=== PATIENT | male | born 1945 | race Caucasian/White ===

== ENCOUNTER 2016-09-24 13:26 | Emergency (ER) | payer MEDICARE, BC ==
[2016-09-24 13:50] VITALS: BP 188/97
[2016-09-24] MEDS ORDERED: Ketorolac 60 MG/2 ML SDV IM ONE (14:48)
--- NOTE | 2016-09-24 14:55 | EDM.PDOC ---
ED HPI Trauma - General Chief Complaint: Upper Extremity Injury/Pain Stated Complaint: LEFT SHOULDER PAIN Time Seen by Provider: 09/24/16 14:52 Source: Reports: Patient, RN notes reviewed History Limitations: Reports: No limitations - History of Present Illness INITIAL COMMENTS - FREE TEXT/NARRATIVE: 70-year-old gentleman presents emergency Department with a complaint of left shoulder pain, this happened earlier today when he slipped in the shower fell against the wall and slid to the ground. He heard a large pop in his left shoulder and is now experiencing pain difficult for him to raise his hand above his head Allergies/ADRs: Allergies liraglutide Allergy (Severe, Verified 09/24/16 13:50) Abdominal Pain Home Medications: Ambulatory Orders Levothyroxine Sodium [Levothyroxine Sodium] 100 mcg PO DAILY 08/08/13 [ Confirmed 09/24/16] Lisinopril [Prinivil] 10 mg PO BID 08/08/13 [Confirmed 09/24/16] Metoprolol Tartrate [Lopressor] 50 mg PO BID 08/08/13 [Confirmed 09/24/16] Tamsulosin HCl [Tamsulosin HCl] 0.4 mg PO DAILY 08/08/13 [Confirmed 09/24/16] atorvaSTATin [Lipitor] 80 mg PO BEDTIME 08/08/13 [Confirmed 09/24/16] metFORMIN [Glucophage] 1,000 mg PO BID 08/08/13 [Confirmed 09/24/16] Aspirin [Adult Low Dose Aspirin EC] 81 mg PO DAILY 08/19/13 [Confirmed 09/24/16] Finasteride [Proscar] 5 mg PO DAILY 08/15/14 [Confirmed 09/24/16] Insulin Glargine,Hum.Rec.Anlog [Malu March] 44 unit SQ ACBREAKFAST [Confirmed 09/24/16] Nitroglycerin [Nitrostat] 0.3 mg PO ASDIRECTED 09/24/16 [Confirmed 09/24/16] Past Medical History HEENT History: Reports: Cataract, Impaired vision Cardiovascular History: Reports: CAD, High cholesterol, Hypertension, Stents, Other (see below) Other Cardiovascular History: leaky valve Genitourinary History: Reports: BPH, Chronic renal insuffiency, Other (see below ) Other Genitourinary History: Nocturia Neurological History: Reports: Parkinson's Endocrine/Metabolic History: Reports: Diabetes, type II, Hypoparathyroidism - Infectious Disease History Infectious Disease History: Reports: Chicken pox - Past Surgical History HEENT Surgical History: Reports: Tonsillectomy Cardiovascular Surgical History: Reports: Carotid stents Social & Family History - Family History Family Medical History: Unobtainable - Tobacco Use Smoking Status *Q: Never Smoker Second Hand Smoke Exposure: No - Caffeine Use Caffeine Use: Reports: None - Alcohol Use Days Per Week of Alcohol Use: 0 - Recreational Drug Use Recreational Drug Use: No Review of Systems - Review of Systems Review Of Systems: See Below Constitutional: Reports: no symptoms Respiratory: Reports: no symptoms Cardiovascular: Reports: no symptoms Musculoskeletal: Reports: shoulder pain Trauma Exam - Physical Exam Exam: See Below Text/Narrative:: Examination of the left shoulder I don't appreciate any abnormality there's no edema there is no redness or bruising, radial pulses 2+ no tenderness at the elbow no tenderness the rest he does have pain with crossarm impingement test passively also pain with any abduction. He has some movement in the shoulder however it does elicit pain from any position Exam Limited By: No limitations General Appearance: Reports: alert, WD/WN, no apparent distress Respiratory Exam: Reports: no respiratory distress Course - Vital Signs Last Recorded V/S: Last Vital Signs Temp 96.1 F 09/24/16 13:48 Pulse 64 09/24/16 13:48 Resp 20 09/24/16 13:48 BP 188/97 H 09/24/16 13:48 Pulse Ox 99 09/24/16 13:48 - Orders/Labs/Meds Orders: Active Orders 24 hr Category Date Time Status Shoulder Comp Lt [CR] Stat Exams 09/24/16 14:48 Taken Meds: Medications Discontinued Medications Generic Name Dose Route Start Last Admin Trade Name Freq PRN Reason Stop Dose Admin Ketorolac Tromethamine 60 mg 09/24/16 14:48 09/24/16 14:55 Toradol IM 09/24/16 14:49 60 mg ONETIME ONE Administration Departure - Departure Time of Disposition: 15:33 Disposition: Home, Self-Care 01 Condition: good Clinical Impression: Left shoulder pain Qualifiers: Chronicity: acute Qualified Code(s): M25.512 - Pain in left shoulder Forms: ED Department Discharge Additional Instructions: Use Tylenol No. 3 as needed for pain control, Please followup with your primary care provider in 3-5 days if not better, please call return to the emergency department with worsening of symptoms. - My Orders Last 24 Hours: My Active Orders 09/24/16 14:48 Shoulder Comp Lt [CR] Stat - Assessment/Plan Last 24 Hours: My Active Orders 09/24/16 14:48 Shoulder Comp Lt [CR] Stat Plan: Assessment Acuity = acute Site and laterality = left shoulder strain Etiology = secondary to a fall Manifestations = pain Home Lab values = shoulder film I did review films myself I cannot appreciate any acute process, the official read from radiology is pending Plan I did review film results with him he had good relief from the Toradol injection provided he is to use Tylenol No. 3 as needed for pain control follow up with primary care 3-5 days if no improvement Patient was in agreement with the plan all questions were answered, they were instructed to return to the emergency department or call for worsening symptoms. This note was dictated using [employer] voice recognition software please call with any questions.
--- NOTE | 2016-09-26 11:11 | CR ---
Moderate AC joint hypertrophy. Degenerative changes greater tuberosity. No focal consolidation.
== END 2016-09-24 15:43 | disposition home or self-care (01) ==
LOC: JP.ED 13:26
DX: M25.512 Pain in left shoulder (principal); I25.10 Atherosclerotic heart disease of native coronary artery without angina pectoris; E78.00 Pure hypercholesterolemia, unspecified; I10 Essential (primary) hypertension; E11.9 Type 2 diabetes mellitus without complications; Z98.890 Other specified postprocedural states; W18.09XA Striking against other object with subsequent fall, initial encounter
CPT/HCPCS: 73030; 96372; 99283; 99284; J1885

== ENCOUNTER 2016-10-10 14:00 | Emergency (ER) | payer MEDICARE, BC ==
--- NOTE | 2016-10-10 14:32 | EDM.PDOC ---
ED HISTORY OF PRESENT ILLNESS - General Chief Complaint: Chest Pain Stated Complaint: CHEST PAIN Time Seen by Provider: 10/10/16 14:29 Source: Reports: Patient History Limitations: Reports: No limitations - History of Present Illness INITIAL COMMENTS - FREE TEXT/NARRATIVE: 70-year-old gentleman presents emergency Department with a complaint of chest pain, pain started about 4 hours prior came on at rest he does have a history of coronary artery disease last stent in 2004, denies any shortness of breath nausea vomiting diaphoresis he did take 4 baby aspirin and the pain has resolved he is asymptomatic at this time DIXIE score is 3 - Related Data Allergies/ADRs: Allergies Allergy/AdvReac Type Severity Reaction Status Date / Time liraglutide Allergy Severe Abdominal Verified 10/10/16 14:07 Pain Home Meds: Home Meds Levothyroxine Sodium [Levothyroxine Sodium] 100 mcg PO DAILY 08/08/13 [History] Lisinopril [Prinivil] 10 mg PO BID 08/08/13 [History] Metoprolol Tartrate [Lopressor] 50 mg PO BID 08/08/13 [History] Tamsulosin HCl [Tamsulosin HCl] 0.4 mg PO DAILY 08/08/13 [History] atorvaSTATin [Lipitor] 80 mg PO BEDTIME 08/08/13 [History] metFORMIN [Glucophage] 1,000 mg PO BID 08/08/13 [History] Aspirin [Adult Low Dose Aspirin EC] 81 mg PO DAILY 08/19/13 [History] Finasteride [Proscar] 5 mg PO DAILY 08/15/14 [History] Insulin Glargine,Hum.Rec.Anlog [Malu March] 44 unit SQ ACBREAKFAST [History] Nitroglycerin [Nitrostat] 0.3 mg PO ASDIRECTED 09/24/16 [History] Ascorbic Acid [Vitamin C] 1 tab PO DAILY 10/10/16 [History] Cholecalciferol (Vitamin D3) [Vitamin D3] 2,000 unit PO DAILY 10/10/16 [History] Past Medical History HEENT History: Reports: Cataract, Impaired vision Cardiovascular History: Reports: CAD, High cholesterol, Hypertension, Stents, Other (see below) Other Cardiovascular History: leaky valve Genitourinary History: Reports: BPH, Chronic renal insuffiency, Other (see below ) Other Genitourinary History: Nocturia Neurological History: Reports: Parkinson's Endocrine/Metabolic History: Reports: Diabetes, type II, Hypoparathyroidism - Infectious Disease History Infectious Disease History: Reports: Chicken pox - Past Surgical History HEENT Surgical History: Reports: Tonsillectomy Cardiovascular Surgical History: Reports: Carotid stents Social & Family History - Family History Family Medical History: Unobtainable - Tobacco Use Smoking Status *Q: Never Smoker Second Hand Smoke Exposure: No - Caffeine Use Caffeine Use: Reports: Soda - Alcohol Use Days Per Week of Alcohol Use: 0 - Recreational Drug Use Recreational Drug Use: No ED ROS GENERAL - Review of Systems Review Of Systems: See Below Constitutional: Reports: no symptoms HEENT: Reports: No symptoms Respiratory: Reports: No Symptoms Cardiovascular: Reports: Chest pain GI/Abdominal: Reports: No symptoms : Reports: no symptoms Musculoskeletal: Reports: no symptoms Skin: Reports: no symptoms Neurological: Reports: No Symptoms ED EXAM, GENERAL - Physical Exam Exam: See Below Free Text/Narrative:: General: male, not in any distress, alert and oriented x3 HEENT: head is atraumatic normocephalic, eyes pupils equal round reactive to light, sclera clear no conjunctivitis appreciated. Ears tympanic membranes clear and peralta landmarks and light reflex are present bilaterally canals are clear. Nose no septal deviation, nares are clear, no blood present. Mouth mucosa is moist and pink no erythema or exudate noted in soft palate, tongue is midline uvula is midline, dentition is intact. Neck: Supple no thyromegaly no tracheal deviation. Nodes: Cervical nodes subclavicular nodes nontender no palpable lymphadenopathy noted. Lungs: clear to auscultation bilaterally with symmetrical respirations, no adventitious noise appreciated. CV: Regular rate and rhythm S1 and S2 appreciated no murmurs rubs or gallops noted. Abdomen: Soft, nontender, no palpable masses or organomegaly appreciated, no distention no guarding bowel sounds are present, . Neuro: Cranial nerves II through XII grossly intact Skin: Warm and dry, intact Extremities: No lower extremity edema appreciated, Course - Vital Signs Last Recorded V/S: Last Vital Signs Temp 96.1 F 10/10/16 14:18 Pulse 67 10/10/16 17:14 Resp 15 10/10/16 14:18 BP 183/95 H 10/10/16 17:14 Pulse Ox 94 L 10/10/16 17:14 - Orders/Labs/Meds Orders: Active Orders 24 hr Category Date Time Status Cardiac Monitoring [RC] .As Directed Care 10/10/16 14:28 Active EKG Documentation Completion [RC] ASDIRECTED Care 10/10/16 14:29 Active EKG 12 Lead [EK] Stat Ther 10/10/16 14:29 Ordered Labs: Laboratory Tests 10/10/16 10/10/16 10/10/16 Range/Units 14:43 14:43 17:00 WBC 12.6 H (4.5-11.0) K/uL RBC 5.23 (4.30-5.90) M/uL Hgb 15.7 H (12.0-15.0) g/dL Hct 45.6 (40.0-54.0) % MCV 87 (80-98) fL MCH 30 (27-31) pg MCHC 34 (32-36) % Plt Count 233 (150-400) K/uL Neut % (Auto) 55 (36-66) % Lymph % (Auto) 37 (24-44) % [place] % (Auto) 6 (2-6) % Eos % (Auto) 2 (2-4) % Baso % (Auto) 1 (0-1) % Sodium 142 (140-148) mmol/L Potassium 4.4 (3.6-5.2) mmol/L Chloride 103 (100-108) mmol/L Carbon Dioxide 25 (21-32) mmol/L Anion Gap 14.2 H (5.0-14.0) mmol/L BUN 26 H (7-18) mg/dL Creatinine 1.2 (0.8-1.3) mg/dL Est Cr Clr Drug Dosing 59.99 mL/min Estimated GFR (MDRD) > 60 (>60) Glucose 217 H (74-106) mg/dL Calcium 9.0 (8.5-10.1) mg/dL Total Bilirubin 0.5 (0.2-1.0) mg/dL AST 22 (15-37) U/L ALT 38 (12-78) U/L Alkaline Phosphatase 82 (46-116) U/L CK-MB (CK-2) 1.9 (0-3.6) mg/mL Troponin I 0.020 < 0.017 (0.000-0.056) ng/mL Total Protein 7.1 (6.4-8.2) g/dL Albumin 3.9 (3.4-5.0) g/dL Globulin 3.2 (2.3-3.5) g/dL Albumin/Globulin Ratio 1.2 (1.2-2.2) Departure - Departure Time of Disposition: 17:42 Disposition: Home, Self-Care 01 Condition: good Clinical Impression: Atypical chest pain Forms: ED Department Discharge Additional Instructions: please report to the hospital and register for your stress test on Monday of this week - My Orders Last 24 Hours: My Active Orders 10/10/16 14:28 Cardiac Monitoring [RC] .As Directed 10/10/16 14:29 EKG Documentation Completion [RC] ASDIRECTED EKG 12 Lead [EK] Stat - Assessment/Plan Last 24 Hours: My Active Orders 10/10/16 14:28 Cardiac Monitoring [RC] .As Directed 10/10/16 14:29 EKG Documentation Completion [RC] ASDIRECTED EKG 12 Lead [EK] Stat Plan: Assessment Acuity = acute Site and laterality = chest pain complicated patient with known history of coronary artery disease and diabetes mellitus type 2 Etiology = unclear etiology Manifestations = asymptomatic Location of injury = home Lab values = WBC elevated 12.6 consistent leukocytosis, CMP within normal limits troponin negative x2 EKG shows no acute process, chest x-ray shows no acute process Plan I did review EKG and blood work results with him he remained asymptomatic while in the ED because of his known history of coronary artery disease and has been several years since he's had any stress test unclear etiology of this particular event of chest pain plan is to set him up for an exercise Cardiolite stress test which will be done in 2 days Patient was in agreement with the plan all questions were answered, they were instructed to return to the emergency department or call for worsening symptoms. This note was dictated using [employer] voice recognition software please call with any questions.
--- NOTE | 2016-10-10 14:46 | CR ---
Chest 1V Frontal HISTORY: Pain COMPARISON: 04/10/2012. FINDINGS: Slight elevation right hemidiaphragm. Cardiac size stable pulmonary vessels normal. No foc al infiltrates.
[2016-10-10 17:15] VITALS: BP 183/95
== END 2016-10-10 18:09 | disposition home or self-care (01) ==
LOC: JP.ED 14:00
DX: R07.89 Other chest pain (principal); I10 Essential (primary) hypertension; I25.10 Atherosclerotic heart disease of native coronary artery without angina pectoris; E78.00 Pure hypercholesterolemia, unspecified; E11.9 Type 2 diabetes mellitus without complications; E20.9 Hypoparathyroidism, unspecified; Z98.890 Other specified postprocedural states; Z88.8 Allergy status to other drugs, medicaments and biological substances; Z79.82 Long term (current) use of aspirin; Z79.899 Other long term (current) drug therapy
CPT/HCPCS: 36415; 71010; 71010-26; 80053; 82553; 84484; 85025; 93005; 93010; 99284; 99285-25

== ENCOUNTER 2017-06-14 09:00 | Day surgery (SDC) | payer MEDICARE, BC ==
[2017-06-14] MEDS ORDERED: fentaNYL 100 MCG/2 ML SDV ONE (09:30)
[2017-06-14] MEDS ORDERED: Propofol 200 MG/20 ML SDV ONE (09:30)
[2017-06-14] MEDS ORDERED: Midazolam 1 MG/ML 2 ML SDV ONE (09:30)
[2017-06-14] MEDS ORDERED: Lactated Ringers 1,000 ML IV SCH (09:30)
[2017-06-14 12:03] VITALS: BP 151/75
--- NOTE | 2017-06-15 10:26 | OR ---
DATE OF PROCEDURE: 06/14/2017 PREOPERATIVE DIAGNOSIS: History of colon polyps. POSTOPERATIVE DIAGNOSIS: Diverticulosis, history of colon polyps. PROCEDURE: Colonoscopy to the cecum. SURGEON: Jacobo Whitmore MD. ANESTHESIA: IV anesthesia with monitored anesthesia care. INDICATION: This 71-year-old white male is referred for a colonoscopy because of a history of colon polyps. He says his last colonoscopic exam was done four years ago. I counseled him for the procedure, including risks and alternatives, and he gave his informed consent to proceed. DESCRIPTION OF PROCEDURE: The patient was placed in the left lateral decubitus position. IV anesthesia was administered by the Anesthesia Service. Time-out was held. A rectal exam was performed, which showed a small nodule on the prostate. The flexible video Olympus colonoscope was introduced through his anus, up his rectum, and out his colon, all the way to the cecum. En route, we saw very few diverticula. There was no bleeding or inflammation associated with them. Once the cecum was reached, the scope was slowly withdrawn, examining the mucosa throughout. No additional mucosal abnormalities were noted. The scope was retroflexed in the rectum with the distal rectum appearing unremarkable. The scope was straightened and removed. He tolerated the procedure well. Jacobo Whitmore MD /[id number] MTDD
== END 2017-06-14 12:06 | disposition home or self-care (01) ==
LOC: JP.SDS 09:00
PROVIDERS: ATTEND Surgery
DX: Z12.11 Encounter for screening for malignant neoplasm of colon (principal); K57.30 Diverticulosis of large intestine without perforation or abscess without bleeding; I25.10 Atherosclerotic heart disease of native coronary artery without angina pectoris; I12.9 Hypertensive chronic kidney disease with stage 1 through stage 4 chronic kidney disease, or unspecified chronic kidney disease; E11.22 Type 2 diabetes mellitus with diabetic chronic kidney disease; N18.9 Chronic kidney disease, unspecified; E11.40 Type 2 diabetes mellitus with diabetic neuropathy, unspecified; N40.2 Nodular prostate without lower urinary tract symptoms; Z86.010 Personal history of colon polyps; Z88.8 Allergy status to other drugs, medicaments and biological substances
CPT/HCPCS: G0105; J2250; J2704; J3010; J7120

== ENCOUNTER 2017-10-15 21:04 | Emergency (ER) | payer MEDICARE, BC ==
[2017-10-15 21:44] VITALS: BP 188/83
[2017-10-15] MEDS ORDERED: Ketorolac 30 MG/ML SDV IM ONE (22:03)
[2017-10-15] MEDS ORDERED: predniSONE 20 MG Tab PO ONE (22:04)
--- NOTE | 2017-10-15 22:07 | EDM.PDOC ---
ED HPI GENERAL MEDICAL PROBLEM - General Chief Complaint: Back Pain or Injury Stated Complaint: PAIN ON RI SI Time Seen by Provider: 10/15/17 21:50 Source of Information: Reports: Patient, Old Records, RN History Limitations: Reports: No Limitations - History of Present Illness INITIAL COMMENTS - FREE TEXT/NARRATIVE: 71 yo male presents with R hip pain that radiates at times down his R leg to the level of the calf. He is not aware of injury. Coughing does not worsen his pain. No numbness to the leg. No bowel or bladder issues. No hx of this same pain in the past. 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: Reports: Other (see below) (none) back Pain Score (Numeric/FACES): 6 - Related Data Allergies Allergy/AdvReac Type Severity Reaction Status Date / Time liraglutide Allergy Severe Abdominal Verified 10/15/17 21:32 Pain Home Meds: Home Meds Levothyroxine Sodium 112 mcg PO DAILY 08/08/13 [History] Lisinopril [Prinivil] 10 mg PO DAILY 08/08/13 [History] Metoprolol Tartrate [Lopressor] 50 mg PO DAILY 08/08/13 [History] Tamsulosin HCl 0.4 mg PO DAILY 08/08/13 [History] atorvaSTATin [Lipitor] 80 mg PO BEDTIME 08/08/13 [History] metFORMIN [Glucophage] 1,000 mg PO DAILY 08/08/13 [History] Aspirin [Adult Low Dose Aspirin EC] 81 mg PO DAILY 08/19/13 [History] Finasteride [Proscar] 5 mg PO DAILY 08/15/14 [History] Insulin Glargine,Hum.Rec.Anlog [Malu March] 44 unit SQ ACBREAKFAST [History] Nitroglycerin [Nitrostat] 0.3 mg PO ASDIRECTED 09/24/16 [History] Ascorbic Acid [Vitamin C] 1 tab PO DAILY 10/10/16 [History] Cholecalciferol (Vitamin D3) [Vitamin D3] 2,000 unit PO DAILY 10/10/16 [History] Polyethylene Glycol 3350 [MiraLAX] 17 g PO DAILY 06/13/17 [History] Alpha Lipoic Acid 400 mg PO DAILY 10/15/17 [History] Carbidopa/Levodopa [Carbidopa-Levodopa 25-100 Tab] 1 tab PO TID 10/15/17 [ History] Past Medical History HEENT History: Reports: Cataract, Hard of Hearing, Impaired Vision Cardiovascular History: Reports: CAD, High Cholesterol, Hypertension, Stents Other Cardiovascular History: leaky valve Gastrointestinal History: Reports: Colon Polyp, Other (See Below) Other Gastrointestinal History: pancreatitis Genitourinary History: Reports: BPH, Chronic Renal Insuffiency Other Genitourinary History: Nocturia Musculoskeletal History: Reports: Gout Neurological History: Reports: Parkinson's Endocrine/Metabolic History: Reports: Diabetes, Type II, Hypoparathyroidism, Other (See Below) Other Endocrine/Metabolic History: pancreatitis Oncologic (Cancer) History: Reports: Leukemia - Infectious Disease History Infectious Disease History: Reports: Chicken Pox - Past Surgical History HEENT Surgical History: Reports: Tonsillectomy Cardiovascular Surgical History: Reports: Carotid Stents GI Surgical History: Reports: Colonoscopy, Polypectomy Dermatological Surgical History: Reports: None Social & Family History - Family History Family Medical History: Unobtainable - Tobacco Use Smoking Status *Q: Never Smoker Second Hand Smoke Exposure: No - Caffeine Use Caffeine Use: Reports: None - Alcohol Use Days Per Week of Alcohol Use: 0 - Recreational Drug Use Recreational Drug Use: No ED ROS GENERAL - Review of Systems Review Of Systems: See Below Constitutional: Reports: No Symptoms HEENT: Reports: No Symptoms Respiratory: Reports: No Symptoms Cardiovascular: Reports: No Symptoms GI/Abdominal: Reports: No Symptoms : Reports: No Symptoms Musculoskeletal: Reports: Other (R buttocks pain that radiates down the R leg on lateral aspect. ) Skin: Reports: No Symptoms Neurological: Denies: Numbness, Paresthesia, Tingling, Difficulty Walking, Weakness, Gait Disturbance Psychiatric: Reports: No Symptoms ED EXAM,LOWER BACK PAIN/INJURY - Physical Exam Exam: See Below Exam Limited By: No Limitations General Appearance: Alert, WD/WN, No Apparent Distress Eye Exam: Bilateral Eye: Normal Inspection Ears: Normal External Exam, Normal Canal, Hearing Grossly Normal, Normal TMs Nose: Normal Inspection, Normal Mucosa, No Blood Throat/Mouth: Normal Inspection, Normal Lips, Normal Oropharynx, Normal Voice, No Airway Compromise Head: Atraumatic, Normocephalic Neck: Normal Inspection Respiratory/Chest: No Respiratory Distress, Lungs Clear, Normal Breath Sounds, No Accessory Muscle Use Cardiovascular: Regular Rate, Rhythm GI/Abdominal: Normal Bowel Sounds, Soft, Non-Tender Back Exam: Normal Inspection. No: CVA Tenderness (R), CVA Tenderness (L), Decreased Range of Motion, Muscle Spasm, Paraspinal Tenderness, Vertebral Tenderness Extremities: Normal Inspection, Normal Range of Motion. No: Non-Tender (tender in R sciatic notch.) Neurological: Alert, Normal Mood/Affect, CN II-XII Intact, No Motor/Sensory Deficits, Oriented x 3, Straight Leg Raise (R) (weakly positive on R). No: Abnormal Sensation, Straight Leg Raise (L) Psychiatric: Normal Affect, Normal Mood Skin Exam: Warm, Dry, Intact, Normal Color, No Rash Lymphatic: No Adenopathy Course - Vital Signs Last Recorded V/S: Last Vital Signs Temp 36.1 C 10/15/17 21:30 Pulse 67 10/15/17 21:30 Resp 16 10/15/17 21:30 BP 188/83 H 10/15/17 21:44 Pulse Ox 95 10/15/17 21:30 - Orders/Labs/Meds Meds: Medications Discontinued Medications Generic Name Dose Route Start Last Admin Trade Name Freq PRN Reason Stop Dose Admin Ketorolac Tromethamine 30 mg 10/15/17 22:03 Toradol IM 10/15/17 22:04 ONETIME ONE Prednisone 20 mg 10/15/17 22:04 Prednisone PO 10/15/17 22:05 ONETIME ONE Departure - Departure Time of Disposition: 22:20 Disposition: Home, Self-Care 01 Condition: Good Clinical Impression: Sciatica of right side - Discharge Information Referrals: Deacon Diop MD [Primary Care Provider] - Forms: ED Department Discharge Additional Instructions: Take ibuprofen 400 mg every 6 hrs with food starting after 4 am tonight. Take prednisone as directed with food. Take [place] for residual pain relief. Rest. Gentle stretching. Recheck later this week in the clinic with you provider, call for an appt.
== END 2017-10-15 22:25 | disposition home or self-care (01) ==
LOC: JP.ED 21:04
DX: M54.41 Lumbago with sciatica, right side (principal); E78.00 Pure hypercholesterolemia, unspecified; I12.9 Hypertensive chronic kidney disease with stage 1 through stage 4 chronic kidney disease, or unspecified chronic kidney disease; N18.9 Chronic kidney disease, unspecified; E11.22 Type 2 diabetes mellitus with diabetic chronic kidney disease; E20.9 Hypoparathyroidism, unspecified; Z88.8 Allergy status to other drugs, medicaments and biological substances; Z79.84 Long term (current) use of oral hypoglycemic drugs; Z79.82 Long term (current) use of aspirin; Z79.899 Other long term (current) drug therapy
CPT/HCPCS: 96372; 99283; A9270; J1885

== ENCOUNTER 2018-02-28 23:31 | Emergency (ER) | payer MEDICARE, BC ==
--- NOTE | 2018-03-01 00:07 | EDM.PDOC ---
ED HPI GENERAL MEDICAL PROBLEM - General Chief Complaint: Neurological Problem Stated Complaint: MEDICAL VIA [facility] Time Seen by Provider: 02/28/18 23:50 Source of Information: Reports: Patient, Old Records, RN History Limitations: Reports: No Limitations - History of Present Illness INITIAL COMMENTS - FREE TEXT/NARRATIVE: 72 yo male with Parkinson's Dz and AODM presents from his home via EMS for bilateral leg numbness and unsteadiness that is new. Was unable to get out of his recliner tonight due to these sx's. Lives alone. Does not have a walker. 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 Blood sugars have been OK. No fevers or chills. No unilateral sx's. No hx of any spinal problems. Fell about a week ago and hit his head without LOC, has been fine since this fall until tonight. Thought that today's sx's were possibly from his injury 7 d ago. EMS and nursing say that he walked fine both at home and later upon arrival in the ER. Onset: Today Onset Date: 03/01/18 Onset Time: 22:00 Duration: Minutes:, Constant Location: Reports: Lower Extremity, Left, Lower Extremity, Right Quality: Reports: Other (weakness) Severity: Moderate Improves with: Reports: None Worsens with: Reports: Other (unknown) Context: Reports: Other (Parkinson's and AODM. Lives alone.) Associated Symptoms: Reports: Other (unsteady on his feet.) Treatments SPA EXPERIENCE COORDINATOR: Reports: Other (see below) Other Treatments SPA EXPERIENCE COORDINATOR: none - Related Data Allergies Allergy/AdvReac Type Severity Reaction Status Date / Time liraglutide Allergy Severe Abdominal Verified 02/28/18 23:41 Pain Home Meds: Home Meds Levothyroxine Sodium 112 mcg PO DAILY 08/08/13 [History] Lisinopril [Prinivil] 10 mg PO DAILY 08/08/13 [History] Metoprolol Tartrate [Lopressor] 50 mg PO DAILY 08/08/13 [History] Tamsulosin HCl 0.4 mg PO DAILY 08/08/13 [History] atorvaSTATin [Lipitor] 80 mg PO BEDTIME 08/08/13 [History] metFORMIN [Glucophage] 1,000 mg PO DAILY 08/08/13 [History] Aspirin [Adult Low Dose Aspirin EC] 81 mg PO DAILY 08/19/13 [History] Finasteride [Proscar] 5 mg PO DAILY 08/15/14 [History] Insulin Glargine,Hum.Rec.Anlog [[place] March] 44 unit SQ ACBREAKFAST [History] Nitroglycerin [Nitrostat] 0.3 mg PO ASDIRECTED 09/24/16 [History] Ascorbic Acid [Vitamin C] 1 tab PO DAILY 10/10/16 [History] Cholecalciferol (Vitamin D3) [Vitamin D3] 2,000 unit PO DAILY 10/10/16 [History] Polyethylene Glycol 3350 [MiraLAX] 17 g PO DAILY 06/13/17 [History] Alpha Lipoic Acid 400 mg PO DAILY 10/15/17 [History] Carbidopa/Levodopa [Carbidopa-Levodopa 25-100 Tab] 1 tab PO QID 10/15/17 [ History] Past Medical History HEENT History: Reports: Cataract, Hard of Hearing, Impaired Vision Cardiovascular History: Reports: CAD, High Cholesterol, Hypertension, Stents Other Cardiovascular History: leaky valve Gastrointestinal History: Reports: Colon Polyp, Other (See Below) Other Gastrointestinal History: pancreatitis Genitourinary History: Reports: BPH, Chronic Renal Insuffiency Other Genitourinary History: Nocturia Musculoskeletal History: Reports: Gout Neurological History: Reports: Parkinson's Endocrine/Metabolic History: Reports: Diabetes, Type II, Hypoparathyroidism, Other (See Below) Other Endocrine/Metabolic History: pancreatitis Oncologic (Cancer) History: Reports: Leukemia - Infectious Disease History Infectious Disease History: Reports: Chicken Pox - Past Surgical History HEENT Surgical History: Reports: Tonsillectomy Cardiovascular Surgical History: Reports: Carotid Stents GI Surgical History: Reports: Colonoscopy, Polypectomy Social & Family History - Family History Family Medical History: Unobtainable - Tobacco Use Smoking Status *Q: Never Smoker - Caffeine Use Caffeine Use: Reports: Coffee - Recreational Drug Use Recreational Drug Use: No ED ROS GENERAL - Review of Systems Review Of Systems: See Below Constitutional: Reports: Weakness (both legs only) HEENT: Reports: No Symptoms Respiratory: Reports: No Symptoms Cardiovascular: Reports: No Symptoms GI/Abdominal: Reports: No Symptoms : Reports: No Symptoms Musculoskeletal: Reports: No Symptoms Skin: Reports: No Symptoms Neurological: Reports: Numbness (of feet bilat, not new, neuropathy), Difficulty Walking (bilat leg weakness, unsteady-new tonight.), Weakness (both legs only). Denies: Confusion, Headache, Change in Speech Psychiatric: Reports: No Symptoms ED EXAM, NEURO - Physical Exam Exam: See Below Exam Limited By: No Limitations General Appearance: Alert, WD/WN, No Apparent Distress, Obese Eye Exam: Bilateral Eye: Normal Inspection, PERRL Ears: Normal External Exam, Normal Canal, Hearing Grossly Normal, Other ( hearing aid on left) Nose: Normal Inspection, Normal Mucosa, No Blood Throat/Mouth: Normal Inspection, Normal Lips, Normal Oropharynx, Normal Voice, No Airway Compromise Head Exam: Atraumatic, Normocephalic Neck: Normal Inspection, Supple, Non-Tender Respiratory/Chest: No Respiratory Distress, Lungs Clear, Normal Breath Sounds, No Accessory Muscle Use Cardiovascular: Regular Rate, Rhythm, No Edema GI/Abdominal: Normal Bowel Sounds, Soft, Non-Tender, No Distention Neurological: Alert, Normal Mood/Affect, Normal Dorsiflexion, CN II-XII Intact, Oriented x 3, Other (no focal weakness noted.) DTR: 1+: Patella (R), Patella (L), Achilles (R), Achilles (L) Back Exam: Normal Inspection. No: CVA Tenderness (R), CVA Tenderness (L) Extremities: Normal Inspection, Normal Range of Motion, Non-Tender, No Pedal Edema Psychiatric: Normal Affect, Normal Mood Skin Exam: Warm, Dry, Intact, Normal Color, No Rash Course - Vital Signs Text/Narrative:: Did walk well in ED after labs were back. Last Recorded V/S: Last Vital Signs Temp 35.9 C 02/28/18 23:32 Pulse 67 02/28/18 23:52 Resp 18 02/28/18 23:52 BP 172/83 H 02/28/18 23:52 Pulse Ox 94 L 02/28/18 23:52 - Orders/Labs/Meds Orders: Active Orders 24 hr Category Date Time Status METHYLMALONIC ACID, SERUM Routine Lab 03/01/18 00:10 Received UA W/MICROSCOPIC [URIN] Stat Lab 03/01/18 00:30 Ordered Labs: Laboratory Tests 02/28/18 02/28/18 03/01/18 Range/Units 00:10 00:10 00:10 WBC 12.3 H (4.5-11.0) K/uL RBC 5.13 (4.30-5.90) M/uL Hgb 15.4 H (12.0-15.0) g/dL Hct 44.5 (40.0-54.0) % MCV 87 (80-98) fL MCH 30 (27-31) pg MCHC 35 (32-36) % Plt Count 237 (150-400) K/uL Sodium 139 L (140-148) mmol/L Potassium 4.3 (3.6-5.2) mmol/L Chloride 102 (100-108) mmol/L Carbon Dioxide 25 (21-32) mmol/L Anion Gap 16.3 H (5.0-14.0) mmol/L BUN 23 H (7-18) mg/dL Creatinine 1.1 (0.8-1.3) mg/dL Est Cr Clr Drug Dosing 63.60 mL/min Estimated GFR (MDRD) > 60 (>60) Glucose 133 H (74-106) mg/dL Calcium 8.9 (8.5-10.1) mg/dL Troponin I < 0.017 (0.000-0.056) ng/mL TSH, Ultra Sensitive 6.640 H (0.358-3.740) uIU/mL Urine Color Urine Appearance Urine pH (4.5-8.0) Ur Specific [place] (1.008-1.030) Urine Protein (NEGATIVE) mg/dL Urine Glucose (UA) (NEGATIVE) mg/dL Urine Ketones (NEGATIVE) mg/dL Urine Occult Blood (NEGATIVE) Urine Nitrite (NEGAITVE) Urine Bilirubin (NEGATIVE) Urine Urobilinogen (NORMAL) mg/dL Ur Leukocyte Esterase (NEGATIVE) Urine RBC (0-5) Urine WBC (0-5) Ur Epithelial Cells Amorphous Sediment Urine Bacteria Urine Mucus 03/01/18 Range/Units 00:30 WBC (4.5-11.0) K/uL RBC (4.30-5.90) M/uL Hgb (12.0-15.0) g/dL Hct (40.0-54.0) % MCV (80-98) fL MCH (27-31) pg MCHC (32-36) % Plt Count (150-400) K/uL Sodium (140-148) mmol/L Potassium (3.6-5.2) mmol/L Chloride (100-108) mmol/L Carbon Dioxide (21-32) mmol/L Anion Gap (5.0-14.0) mmol/L BUN (7-18) mg/dL Creatinine (0.8-1.3) mg/dL Est Cr Clr Drug Dosing mL/min Estimated GFR (MDRD) (>60) Glucose (74-106) mg/dL Calcium (8.5-10.1) mg/dL Troponin I (0.000-0.056) ng/mL TSH, Ultra Sensitive (0.358-3.740) uIU/mL Urine Color Yellow Urine Appearance Clear Urine pH 6.0 (4.5-8.0) Ur Specific [place] 1.015 (1.008-1.030) Urine Protein Negative (NEGATIVE) mg/dL Urine Glucose (UA) Normal (NEGATIVE) mg/dL Urine Ketones Negative (NEGATIVE) mg/dL Urine Occult Blood Negative (NEGATIVE) Urine Nitrite Negative (NEGAITVE) Urine Bilirubin Negative (NEGATIVE) Urine Urobilinogen Normal (NORMAL) mg/dL Ur Leukocyte Esterase Negative (NEGATIVE) Urine RBC 0-5 (0-5) Urine WBC 0-5 (0-5) Ur Epithelial Cells Not seen Amorphous Sediment Not seen Urine Bacteria Rare Urine Mucus Not seen Departure - Departure Time of Disposition: 00:54 Disposition: Home, Self-Care 01 Condition: Good Clinical Impression: Parkinson disease Hypothyroidism Qualifiers: Hypothyroidism type: unspecified Qualified Code(s): E03.9 - Hypothyroidism, unspecified Peripheral neuropathy Qualifiers: Peripheral neuropathy type: polyneuropathy associated with underlying disease Qualified Code(s): G63 - Polyneuropathy in diseases classified elsewhere - Discharge Information *PRESCRIPTION DRUG MONITORING PROGRAM REVIEWED*: Not Applicable *COPY OF PRESCRIPTION DRUG MONITORING REPORT IN PATIENT [place]: Not Applicable Referrals: PCP,None [Primary Care Provider] - Forms: ED Department Discharge Additional Instructions: Discuss your low TSH level with your provider. Have your provider follow up on your methylmalonic acid level. Return here as needed. Continue your medications as currently until you see your provider. - My Orders Last 24 Hours: My Active Orders 03/01/18 00:10 METHYLMALONIC ACID, SERUM Routine 03/01/18 00:30 UA W/MICROSCOPIC [URIN] Stat - Assessment/Plan Last 24 Hours: My Active Orders 03/01/18 00:10 METHYLMALONIC ACID, SERUM Routine 03/01/18 00:30 UA W/MICROSCOPIC [URIN] Stat
[2018-03-01 00:22] VITALS: BP 172/83
[2018-03-06 09:16] LABS: METHYLMALONIC ACID, SERUM 257 nmol/L (0-378)
== END 2018-03-01 01:25 | disposition home or self-care (01) ==
LOC: JP.ED 23:31
DX: E11.40 Type 2 diabetes mellitus with diabetic neuropathy, unspecified (principal); G20 Parkinson's disease; E03.9 Hypothyroidism, unspecified; I12.9 Hypertensive chronic kidney disease with stage 1 through stage 4 chronic kidney disease, or unspecified chronic kidney disease; E11.22 Type 2 diabetes mellitus with diabetic chronic kidney disease; N18.9 Chronic kidney disease, unspecified; Z79.82 Long term (current) use of aspirin; Z79.4 Long term (current) use of insulin; Z79.899 Other long term (current) drug therapy; Z88.8 Allergy status to other drugs, medicaments and biological substances
CPT/HCPCS: 36415; 80048; 81001; 83921; 84443; 84484; 85027; 99284

== ENCOUNTER 2019-04-04 08:15 | Emergency (ER) | payer MEDICARE, BC ==
--- NOTE | 2019-04-04 09:49 | EDM.PDOC ---
ED HPI GENERAL MEDICAL PROBLEM - General Chief Complaint: Syncope Stated Complaint: MEDICAL VIA [facility] Time Seen by Provider: 04/04/19 09:18 Source of Information: Reports: Patient History Limitations: Reports: No Limitations - History of Present Illness INITIAL COMMENTS - FREE TEXT/NARRATIVE: This gentleman brought to the emergency department by EMS after he had a syncopal episode while shopping. EMS said his blood sugar was 61. Patient recently had some of his diabetes medications adjusted. This morning he took all of his oral medications including his insulins but did not eat breakfast and then went shopping. He has now had breakfast says he feels just fine and wants to go home. He was hospitalized about a week ago for some problems with his Parkinson's meds which were adjusted. Patient denies any problems with anemia he's had no blood loss no problems with changes in stool color or anything of that nature. denies Pain Score (Numeric/FACES): 0 - Related Data Allergies Allergy/AdvReac Type Severity Reaction Status Date / Time liraglutide Allergy Severe Abdominal Verified 04/04/19 08:31 Pain melatonin Allergy Other Verified 04/04/19 08:31 Home Meds: Home Meds Levothyroxine Sodium 125 mcg PO DAILY 08/08/13 [History] Lisinopril [Prinivil] 10 mg PO BID 08/08/13 [History] Metoprolol Tartrate [Lopressor] 50 mg PO BID 08/08/13 [History] Tamsulosin HCl 0.4 mg PO DAILY 08/08/13 [History] atorvaSTATin [Lipitor] 40 mg PO BEDTIME 08/08/13 [History] metFORMIN [Glucophage] 1,000 mg PO BIDMEALS 08/08/13 [History] Aspirin [Adult Low Dose Aspirin EC] 81 mg PO DAILY 08/19/13 [History] Finasteride [Proscar] 5 mg PO DAILY 08/15/14 [History] Nitroglycerin [Nitrostat] 0.3 mg PO ASDIRECTED 09/24/16 [History] Ascorbic Acid [Vitamin C] 1,000 mg PO DAILY 10/10/16 [History] Cholecalciferol (Vitamin D3) [Vitamin D3] 2,000 unit PO DAILY 10/10/16 [History] Polyethylene Glycol 3350 [MiraLAX] 17 g PO DAILY 06/13/17 [History] Alpha Lipoic Acid 400 mg PO DAILY 10/15/17 [History] Carbidopa/Levodopa [Carbidopa-Levodopa 25-100 Tab] 2 tab PO QID 10/15/17 [ History] Escitalopram Oxalate 5 mg PO DAILY 03/24/19 [History] Insulin Degludec [Tresiba Flextouch U-200] 44 units SUBCUT DAILY 03/24/19 [ History] Past Medical History HEENT History: Reports: Cataract, Hard of Hearing, Impaired Vision Cardiovascular History: Reports: CAD, High Cholesterol, Hypertension, Stents Other Cardiovascular History: leaky valve Gastrointestinal History: Reports: Colon Polyp, Diverticulosis, Pancreatitis Other Gastrointestinal History: pancreatitis Genitourinary History: Reports: BPH, Chronic Renal Insuffiency Other Genitourinary History: Nocturia Musculoskeletal History: Reports: Gout Neurological History: Reports: Parkinson's Endocrine/Metabolic History: Reports: Diabetes, Type II, Hypoparathyroidism, Other (See Below) Other Endocrine/Metabolic History: pancreatitis Hematologic History: Reports: Anticoagulation Therapy Oncologic (Cancer) History: Reports: Leukemia - Infectious Disease History Infectious Disease History: Reports: Chicken Pox - Past Surgical History HEENT Surgical History: Reports: Tonsillectomy Cardiovascular Surgical History: Reports: Carotid Stents GI Surgical History: Reports: Colonoscopy, Polypectomy Dermatological Surgical History: Reports: None Social & Family History - Family History Family Medical History: Unobtainable - Tobacco Use Smoking Status *Q: Never Smoker Second Hand Smoke Exposure: No - Caffeine Use Caffeine Use: Reports: None - Recreational Drug Use Recreational Drug Use: No ED ROS GENERAL - Review of Systems Review Of Systems: ROS reveals no pertinent complaints other than HPI. ED EXAM, GENERAL - Physical Exam Exam: See Below Exam Limited By: No Limitations General Appearance: Alert, No Apparent Distress, Other (Extremities look pale but mucous membranes tongue and so forth are nice bright pink color) Eye Exam: Bilateral Eye: EOMI, PERRL Throat/Mouth: Normal Inspection Neck: Normal Inspection Respiratory/Chest: Lungs Clear Cardiovascular: Regular Rate, Rhythm, No Murmur GI/Abdominal: Non-Tender Extremities: Normal Inspection Neurological: Alert, Oriented, CN II-XII Intact, No Motor/Sensory Deficits Psychiatric: Normal Affect Skin Exam: Pallor (Nurse says this is his normal color) Course - Vital Signs Last Recorded V/S: Last Vital Signs Temp 30.4 C L 04/04/19 08:41 Pulse 56 L 09/19/19 08:41 Resp 16 04/04/19 08:41 BP 143/80 H 04/04/19 08:41 Pulse Ox 98 04/04/19 08:41 - Re-Assessments/Exams Free Text/Narrative Re-Assessment/Exam: 04/04/19 09:51 Fingerstick blood sugar is 92. The patient is ready to go home Departure - Departure Time of Disposition: 09:52 Disposition: Home, Self-Care 01 Condition: Fair Clinical Impression: Hypoglycemia associated with type 2 diabetes mellitus, Syncope and collapse - Discharge Information Referrals: PCP,None [Primary Care Provider] - Forms: ED Department Discharge
[2019-04-04 10:30] VITALS: BP 141/75; PULSE 63
== END 2019-04-04 10:10 | disposition home or self-care (01) ==
LOC: JP.ED 08:15
DX: E11.649 Type 2 diabetes mellitus with hypoglycemia without coma (principal); I25.10 Atherosclerotic heart disease of native coronary artery without angina pectoris; I12.9 Hypertensive chronic kidney disease with stage 1 through stage 4 chronic kidney disease, or unspecified chronic kidney disease; N18.9 Chronic kidney disease, unspecified; E11.22 Type 2 diabetes mellitus with diabetic chronic kidney disease; M10.9 Gout, unspecified; Z98.890 Other specified postprocedural states; Z88.8 Allergy status to other drugs, medicaments and biological substances; Z79.899 Other long term (current) drug therapy; Z79.82 Long term (current) use of aspirin; Z95.5 Presence of coronary angioplasty implant and graft
CPT/HCPCS: 99283; 99284

== ENCOUNTER 2019-04-06 07:58 | Emergency (ER) | payer MEDICARE, BC ==
[2019-04-06 09:13] VITALS: PULSE 98
--- NOTE | 2019-04-06 09:29 | EDM.PDOC ---
ED HPI GENERAL MEDICAL PROBLEM - General Chief Complaint: General Stated Complaint: WEAKNESS Time Seen by Provider: 04/06/19 09:25 Source of Information: Reports: Patient History Limitations: Reports: No Limitations - History of Present Illness INITIAL COMMENTS - FREE TEXT/NARRATIVE: pt arrived because when he got up this am he was very off balance and he was not able to walk, He has a perscrption for a walker but he has not gotten the walker. He does feel quite unstable on his feet. He is considering a assited living type facility. Onset: Gradual, Other (pt has been feeling off balance recently. He seemes to be having some problems with low sugars mainly because he is not eating regularly. ) Duration: Day(s): Location: Reports: Head, Other (pt is feeling off balance) Associated Symptoms: Reports: Other (pt was very off balance ansd if he had not been careful he would have fallen. ) denies Pain Score (Numeric/FACES): 0 - Related Data Allergies Allergy/AdvReac Type Severity Reaction Status Date / Time liraglutide Allergy Severe Abdominal Verified 04/06/19 08:07 Pain melatonin Allergy Other Verified 04/06/19 08:07 Home Meds: Home Meds Levothyroxine Sodium 125 mcg PO DAILY 08/08/13 [History] Lisinopril [Prinivil] 10 mg PO BID 08/08/13 [History] Metoprolol Tartrate [Lopressor] 50 mg PO BID 08/08/13 [History] Tamsulosin HCl 0.4 mg PO DAILY 08/08/13 [History] atorvaSTATin [Lipitor] 40 mg PO BEDTIME 08/08/13 [History] metFORMIN [Glucophage] 1,000 mg PO BIDMEALS 08/08/13 [History] Aspirin [Adult Low Dose Aspirin EC] 81 mg PO DAILY 08/19/13 [History] Finasteride [Proscar] 5 mg PO DAILY 08/15/14 [History] Nitroglycerin [Nitrostat] 0.3 mg PO ASDIRECTED 09/24/16 [History] Ascorbic Acid [Vitamin C] 1,000 mg PO DAILY 10/10/16 [History] Cholecalciferol (Vitamin D3) [Vitamin D3] 2,000 unit PO DAILY 10/10/16 [History] Polyethylene Glycol 3350 [MiraLAX] 17 g PO DAILY 06/13/17 [History] Alpha Lipoic Acid 400 mg PO DAILY 10/15/17 [History] Carbidopa/Levodopa [Carbidopa-Levodopa 25-100 Tab] 2 tab PO QID 10/15/17 [ History] Insulin Degludec [Tresiba Flextouch U-200] 44 units SUBCUT DAILY 03/24/19 [ History] Past Medical History HEENT History: Reports: Cataract, Hard of Hearing, Impaired Vision Cardiovascular History: Reports: CAD, High Cholesterol, Hypertension, Stents Other Cardiovascular History: leaky valve Gastrointestinal History: Reports: Colon Polyp, Diverticulosis, Pancreatitis Other Gastrointestinal History: pancreatitis Genitourinary History: Reports: BPH, Chronic Renal Insuffiency Other Genitourinary History: Nocturia Musculoskeletal History: Reports: Gout Neurological History: Reports: Parkinson's Endocrine/Metabolic History: Reports: Diabetes, Type II, Hypoparathyroidism, Other (See Below) Other Endocrine/Metabolic History: pancreatitis Hematologic History: Reports: Anticoagulation Therapy Oncologic (Cancer) History: Reports: Leukemia - Infectious Disease History Infectious Disease History: Reports: Chicken Pox - Past Surgical History HEENT Surgical History: Reports: Tonsillectomy Cardiovascular Surgical History: Reports: Carotid Stents GI Surgical History: Reports: Colonoscopy, Polypectomy Dermatological Surgical History: Reports: None Social & Family History - Family History Family Medical History: Unobtainable - Tobacco Use Smoking Status *Q: Never Smoker - Caffeine Use Caffeine Use: Reports: None - Recreational Drug Use Recreational Drug Use: No ED ROS GENERAL - Review of Systems Review Of Systems: See Below Constitutional: Reports: Weakness, Other (pt is feeling very off balance. ) HEENT: Reports: No Symptoms Respiratory: Reports: No Symptoms Cardiovascular: Reports: No Symptoms Endocrine: Reports: No Symptoms GI/Abdominal: Reports: No Symptoms : Reports: No Symptoms Musculoskeletal: Reports: No Symptoms Skin: Reports: No Symptoms ED EXAM, GENERAL - Physical Exam Exam: See Below Free Text/Narrative:: pt had a bs of 117. He has not eaten and he has not taken his meds this am. He is feeling very off balance. Exam Limited By: No Limitations General Appearance: Alert, Anxious, Mild Distress Ears: Normal TMs Nose: Normal Inspection Throat/Mouth: Normal Inspection Head: Atraumatic Neck: Normal Inspection Respiratory/Chest: No Respiratory Distress Cardiovascular: Regular Rate, Rhythm GI/Abdominal: Soft, Non-Tender (Male) Exam: Deferred Rectal (Males) Exam: Deferred Back Exam: Normal Inspection Extremities: Normal Inspection Neurological: Alert, Oriented, Normal Cognition Course - Vital Signs Last Recorded V/S: Last Vital Signs Temp 35.2 C L 04/06/19 08:09 Pulse 98 04/06/19 10:26 Resp 12 04/06/19 10:26 BP 148/81 H 04/06/19 10:26 Pulse Ox 98 04/06/19 10:26 Orthostatic Blood Pressure [ 136/68 Standing] Orthostatic Blood Pressure [ 142/83 Sitting] Orthostatic Blood Pressure [ 160/100 Supine] - Orders/Labs/Meds Orders: Active Orders 24 hr Category Date Time Status Orthostatic Vital Signs [RC] ASDIRECTED Care 04/06/19 09:33 Active Labs: Laboratory Tests 04/06/19 04/06/19 Range/Units 08:16 08:16 WBC 13.9 H (4.5-11.0) K/uL RBC 5.24 (4.30-5.90) M/uL Hgb 14.9 (12.0-15.0) g/dL Hct 44.3 (40.0-54.0) % MCV 85 (80-98) fL MCH 28 (27-31) pg MCHC 34 (32-36) % Plt Count 260 (150-400) K/uL Neut % (Auto) 51 (36-66) % Lymph % (Auto) 44 (24-44) % [place] % (Auto) 4 (2-6) % Eos % (Auto) 0 L (2-4) % Baso % (Auto) 0 (0-1) % Sodium 135 L (140-148) mmol/L Potassium 3.7 (3.6-5.2) mmol/L Chloride 98 L (100-108) mmol/L Carbon Dioxide 26 (21-32) mmol/L Anion Gap 14.7 H (5.0-14.0) mmol/L BUN 16 (7-18) mg/dL Creatinine 1.0 (0.8-1.3) mg/dL Est Cr Clr Drug Dosing 68.94 mL/min Estimated GFR (MDRD) > 60 (>60) Glucose 117 H (74-106) mg/dL Calcium 9.5 (8.5-10.1) mg/dL Total Bilirubin 0.9 (0.2-1.0) mg/dL AST 11 L (15-37) U/L ALT 9 L (12-78) U/L Alkaline Phosphatase 90 (46-116) U/L Total Protein 7.0 (6.4-8.2) g/dL Albumin 3.9 (3.4-5.0) g/dL Globulin 3.1 (2.3-3.5) g/dL Albumin/Globulin Ratio 1.3 (1.2-2.2) - Re-Assessments/Exams Free Text/Narrative Re-Assessment/Exam: 04/06/19 11:12 pt arrived with ahistory of feeling very off balance. Labs lookedgood. He was walked with a walker and did better. He did have a order from Dr Diop for a wlker but that has not been filled. Departure - Departure Time of Disposition: 11:13 Disposition: Home, Self-Care 01 Condition: Fair Clinical Impression: Parkinsonian syndrome - Discharge Information Instructions: Parkinson Disease Referrals: PCP,None [Primary Care Provider] - Forms: ED Department Discharge Care Plan Goals: consider placement in the assisted living -- He has started to investigate this option. Will send a regular walker home with the pt. He still should fll the [address] Diop perscribed. Continue same meds. - My Orders Last 24 Hours: My Active Orders 04/06/19 09:33 Orthostatic Vital Signs [RC] ASDIRECTED - Assessment/Plan Last 24 Hours: My Active Orders 04/06/19 09:33 Orthostatic Vital Signs [RC] ASDIRECTED
[2019-04-06 10:27] VITALS: BP 148/81
== END 2019-04-06 12:27 | disposition home or self-care (01) ==
LOC: JP.ED 07:58
DX: G20 Parkinson's disease (principal); I12.9 Hypertensive chronic kidney disease with stage 1 through stage 4 chronic kidney disease, or unspecified chronic kidney disease; E11.22 Type 2 diabetes mellitus with diabetic chronic kidney disease; N18.9 Chronic kidney disease, unspecified; E20.9 Hypoparathyroidism, unspecified; E78.00 Pure hypercholesterolemia, unspecified; Z79.899 Other long term (current) drug therapy; Z88.8 Allergy status to other drugs, medicaments and biological substances
CPT/HCPCS: 36415; 80053; 85025; 99282; 99285

== ENCOUNTER 2019-04-09 20:08 | Emergency (ER) | payer MEDICARE, BC ==
[2019-04-09] MEDS ORDERED: Ondansetron 4 MG Tab.DIS PO ONE (20:44)
--- NOTE | 2019-04-09 20:47 | EDM.PDOC ---
ED HPI GENERAL MEDICAL PROBLEM - General Chief Complaint: Gastrointestinal Problem Stated Complaint: [facility] Time Seen by Provider: 04/09/19 20:36 Source of Information: Reports: Patient, Old Records, RN Notes Reviewed History Limitations: Reports: No Limitations - History of Present Illness INITIAL COMMENTS - FREE TEXT/NARRATIVE: 73-year-old gentleman presents emergency department today complaint nausea and vomiting, he has multiple medical problems including Parkinson's was has been progressing recent change in medication he states he has had some nausea over the last month or so but has been dealing with it however the last 24 hours developed nausea with vomiting. Has had some difficulty with his blood sugars as well denies pain Pain Score (Numeric/FACES): 0 - Related Data Allergies Allergy/AdvReac Type Severity Reaction Status Date / Time liraglutide Allergy Severe Abdominal Verified 04/09/19 20:13 Pain melatonin Allergy Other Verified 04/09/19 20:13 Home Meds: Home Meds Levothyroxine Sodium 125 mcg PO DAILY 08/08/13 [History] Lisinopril [Prinivil] 10 mg PO BID 08/08/13 [History] Metoprolol Tartrate [Lopressor] 50 mg PO BID 08/08/13 [History] Tamsulosin HCl 0.4 mg PO BEDTIME 08/08/13 [History] atorvaSTATin [Lipitor] 40 mg PO BEDTIME 08/08/13 [History] metFORMIN [Glucophage] 1,000 mg PO BIDMEALS 08/08/13 [History] Aspirin [Adult Low Dose Aspirin EC] 81 mg PO BEDTIME 08/19/13 [History] Finasteride [Proscar] 5 mg PO DAILY 08/15/14 [History] Nitroglycerin [Nitrostat] 0.3 mg PO ASDIRECTED 09/24/16 [History] Ascorbic Acid [Vitamin C] 1,000 mg PO DAILY 10/10/16 [History] Cholecalciferol (Vitamin D3) [Vitamin D3] 2,000 unit PO DAILY 10/10/16 [History] Polyethylene Glycol 3350 [MiraLAX] 17 g PO DAILY 06/13/17 [History] Alpha Lipoic Acid 400 mg PO DAILY 10/15/17 [History] Carbidopa/Levodopa [Carbidopa-Levodopa 25-100 Tab] 2 tab PO QID 10/15/17 [ History] Insulin Degludec [Tresiba Flextouch U-200] 44 units SUBCUT DAILY 03/24/19 [ History] Past Medical History HEENT History: Reports: Cataract, Hard of Hearing, Impaired Vision Cardiovascular History: Reports: CAD, High Cholesterol, Hypertension, Stents Other Cardiovascular History: leaky valve Gastrointestinal History: Reports: Colon Polyp, Diverticulosis, Pancreatitis Other Gastrointestinal History: pancreatitis Genitourinary History: Reports: BPH, Chronic Renal Insuffiency Other Genitourinary History: Nocturia Musculoskeletal History: Reports: Gout Neurological History: Reports: Parkinson's Endocrine/Metabolic History: Reports: Diabetes, Type II, Hypoparathyroidism, Other (See Below) Other Endocrine/Metabolic History: pancreatitis Hematologic History: Reports: Anticoagulation Therapy Oncologic (Cancer) History: Reports: Leukemia - Infectious Disease History Infectious Disease History: Reports: Chicken Pox - Past Surgical History HEENT Surgical History: Reports: Tonsillectomy Cardiovascular Surgical History: Reports: Carotid Stents GI Surgical History: Reports: Colonoscopy, Polypectomy Social & Family History - Family History Family Medical History: Unobtainable - Tobacco Use Smoking Status *Q: Never Smoker - Caffeine Use Caffeine Use: Reports: None - Recreational Drug Use Recreational Drug Use: No ED ROS GENERAL - Review of Systems Review Of Systems: See Below Constitutional: Reports: No Symptoms HEENT: Reports: No Symptoms Respiratory: Reports: No Symptoms Cardiovascular: Reports: No Symptoms GI/Abdominal: Reports: Nausea, Vomiting. Denies: Abdominal Pain : Reports: No Symptoms ED EXAM, GI/ABD - Physical Exam Exam: See Below Exam Limited By: No Limitations General Appearance: Alert, WD/WN, No Apparent Distress Respiratory/Chest: No Respiratory Distress, Lungs Clear, Normal Breath Sounds, No Accessory Muscle Use, Chest Non-Tender Cardiovascular: Regular Rate, Rhythm, No Murmur GI/Abdominal Exam: Soft, Non-Tender Course - Vital Signs Last Recorded V/S: Last Vital Signs Temp 95.7 F 04/09/19 20:23 Pulse 63 04/09/19 21:35 Resp 14 04/09/19 21:35 BP 164/89 H 04/09/19 21:35 Pulse Ox 92 L 04/09/19 21:35 - Orders/Labs/Meds Labs: Laboratory Tests 04/09/19 04/09/19 Range/Units 20:54 20:54 WBC 20.2 H (4.5-11.0) K/uL RBC 5.18 (4.30-5.90) M/uL Hgb 14.9 (12.0-15.0) g/dL Hct 44.4 (40.0-54.0) % MCV 86 (80-98) fL MCH 29 (27-31) pg MCHC 34 (32-36) % Plt Count 307 (150-400) K/uL Neut % (Auto) 40 (36-66) % Lymph % (Auto) 54 H (24-44) % Towner % (Auto) 4 (2-6) % Eos % (Auto) 1 L (2-4) % Baso % (Auto) 0 (0-1) % Sodium 137 L (140-148) mmol/L Potassium 3.7 (3.6-5.2) mmol/L Chloride 99 L (100-108) mmol/L Carbon Dioxide 27 (21-32) mmol/L Anion Gap 14.7 H (5.0-14.0) mmol/L BUN 26 H D (7-18) mg/dL Creatinine 1.1 (0.8-1.3) mg/dL Est Cr Clr Drug Dosing 62.68 mL/min Estimated GFR (MDRD) > 60 (>60) Glucose 55 L (74-106) mg/dL Calcium 9.4 (8.5-10.1) mg/dL Meds: Medications Discontinued Medications Generic Name Dose Route Start Last Admin Trade Name Freq PRN Reason Stop Dose Admin Ondansetron HCl 4 mg 04/09/19 20:44 04/09/19 21:03 Zofran Odt PO 04/09/19 20:45 4 mg ONETIME ONE Administration Departure - Departure Time of Disposition: 22:27 Disposition: Home, Self-Care 01 Condition: Fair Clinical Impression: Nausea and vomiting Qualifiers: Vomiting type: unspecified Vomiting Intractability: non-intractable Qualified Code(s): R11.2 - Nausea with vomiting, unspecified - Discharge Information Referrals: PCP,None [Primary Care Provider] - Forms: ED Department Discharge Additional Instructions: Continue to use Zofran as needed for nausea and vomiting symptoms, Please followup with your primary care provider in 3-5 days if not better, please call return to the emergency department with worsening of symptoms. - Assessment/Plan Plan: Assessment Acuity = acute Site and laterality = nausea and vomiting Etiology = unclear etiology Manifestations = none Location of injury = Home Lab values = WBC elevated to 20.2 consistent leukocytosis, sodium low at 137 consistent hyponatremia Plan Good improvement with Zofran provided in the ED she was able to tolerate a meal without difficulty, planned discharge home Zofran one tab by mouth 3 times a day when necessary total #5 follow-up primary care 3-5 days for further evaluation This note was dictated using [employer] voice recognition software please call with any questions on syntax or grammar.
[2019-04-09 23:01] VITALS: BP 169/88; PULSE 65
[2019-04-10] MEDS ORDERED: Carbidopa/Levodopa 25-100 MG Tab PO ONE (00:02)
== END 2019-04-10 00:15 | disposition home or self-care (01) ==
LOC: JP.ED 20:08
DX: R11.2 Nausea with vomiting, unspecified (principal); I13.10 Hypertensive heart and chronic kidney disease without heart failure, with stage 1 through stage 4 chronic kidney disease, or unspecified chronic kidney disease; E11.22 Type 2 diabetes mellitus with diabetic chronic kidney disease; N18.9 Chronic kidney disease, unspecified; I25.10 Atherosclerotic heart disease of native coronary artery without angina pectoris; E78.00 Pure hypercholesterolemia, unspecified; N40.0 Benign prostatic hyperplasia without lower urinary tract symptoms; M10.9 Gout, unspecified; E20.9 Hypoparathyroidism, unspecified; Z88.8 Allergy status to other drugs, medicaments and biological substances; Z79.4 Long term (current) use of insulin; Z79.899 Other long term (current) drug therapy
CPT/HCPCS: 36415; 80048; 85025; 99283; 99284; A9270

== ENCOUNTER 2023-10-23 22:50 | Emergency (ER) | payer MEDICARE, BC ==
[2023-10-23 23:03] LABS: BASOPHILS ABSOLUTE AUTO 0.09 K/uL (0.00-0.10); BASOPHILS PERCENT AUTO 0.8 % (0.1-1.3); EOSINOPHILS ABSOLUTE AUTO 0.31 K/uL (0.00-0.40); EOSINOPHILS PERCENT AUTO 2.7 % (0.0-5.4); HEMATOCRIT 46.6 % (38.4-49.7); HEMOGLOBIN 15.6 g/dL (12.9-16.9); IMMATURE GRAN ABSOLUTE AUTO 0.08 K/uL (0.00-0.23); IMMATURE GRAN PERCENT AUTO 0.7 % (0.0-0.7); LYMPHOCYTES ABSOLUTE AUTO 5.22 K/uL (0.8-3.3); LYMPHOCYTES PERCENT AUTO 44.9 % (11.4-47.7); MEAN CORPUSCULAR HEMOGLOBIN 29.4 pg (31.6-35.5); MEAN CORPUSCULAR HGB CONC 33.5 g/dL (31.6-35.5); MEAN CORPUSCULAR VOLUME 87.9 fL (81.4-99.0); MONOCYTES ABSOLUTE AUTO 0.47 K/uL (0.20-0.90); NEUTROPHILS ABSOLUTE AUTO 5.46 K/uL (1.0-7.6); NEUTROPHILS PERCENT AUTO 46.9 % (40.0-78.1); PLATELET COUNT,PLT 258 K/uL (130-375); WHITE BLOOD CELL COUNT,WBC 11.6 K/uL (3.2-11.0)
[2023-10-23 23:18] LABS: PROTHROMBIN TIME 10.2 sec (9.2-10.6)
[2023-10-23] MEDS: Sodium Chloride 0.9% 1,000 ML IV ONE (23:23)
[2023-10-23 23:30] LABS: ALANINE AMINOTRANSFERASE,ALT 13 U/L (12-78); ALBUMIN 3.8 g/dL (3.4-5.0); ALKALINE PHOSPHATASE 139 U/L (46-116); ASPARTATE AMNIOTRANSFERASE,AST 14 U/L (15-37); BILIRUBIN TOTAL 0.3 mg/dL (0.2-1.0); BLOOD UREA NITROGEN,BUN 40 mg/dL (7-18); CALCIUM 9.5 mg/dL (8.5-10.1); CARBON DIOXIDE,CO2 25 mmol/L (21-32); CHLORIDE,CL 100 mmol/L (100-108); CREATININE 1.6 mg/dL (0.8-1.3); EST CRCL DRUG DOSING (CG) 39.28 mL/min; ESTIMATED GFR 44 mL/min (>60); GLUCOSE RANDOM 357 mg/dL (74-106); MAGNESIUM 2.1 mg/dL (1.8-2.4); POTASSIUM,K 4.5 mmol/L (3.6-5.2); PROTEIN TOTAL,TP 7.6 g/dL (6.4-8.2); SODIUM,NA 135 mmol/L (140-148); TROPONIN I HIGH SENSITIVITY 10.4 pg/mL (<=60.3)
[2023-10-23 23:32] LABS: ANION GAP 14.5 mmol/L (5.0-14.0); C-REACTIVE PROTEIN < 0.50 mg/dL (<0.50)
[2023-10-24] MEDS ORDERED: 50% Dextrose in Water 50 ML Syringe IVPUSH PRN (00:15)
[2023-10-24] MEDS ORDERED: Glucagon,Human Recombinant 1 MG Vial IM PRN (00:15)
[2023-10-24] MEDS: Insulin Regular, Human 100 Units/ML 3 ML Vial SUBCUT ONE (01:17)
[2023-10-24] MEDS: Lidocaine 2% Jelly 10 ML Urojet MUCMEM ONE (02:00)
[2023-10-24 02:49] LABS: APPEARANCE,URINE CLEAR (CLEAR); BILIRUBIN,URINE NEGATIVE (NEGATIVE); COLOR,URINE YELLOW (YELLOW); GLUCOSE,URINE 500 mg/dL (NEGATIVE); KETONES,URINE NEGATIVE (NEGATIVE); LEUKOCYTE ESTERASE,URINE NEGATIVE (NEGATIVE); NITRITE,URINE NEGATIVE (NEGATIVE); OCCULT BLOOD,URINE NEGATIVE (NEGATIVE); PH,URINE 5.5 (5.0-8.0); PROTEIN,URINE NEGATIVE (NEGATIVE); UROBILINOGEN,URINE 0.2 EU/dL (0.2-1.0)
[2023-10-24] MEDS: Lidocaine 2% Jelly 10 ML Urojet ONE (02:53)
[2023-10-24 03:07] LABS: AMORPHOUS SEDIMENT,URINE NOT SEEN; BACTERIA,URINE RARE; EPITHELIAL CELLS,URINE RARE; MUCUS,URINE NOT SEEN; RBC,URINE 0-5 (0-5); WBC,URINE 0-5 (0-5)
[2023-10-24 03:24] LABS: CORONAVIRUS COVID-19 NAA NEGATIVE (NEGATIVE); INFLUENZA A NAA NEGATIVE (NEGATIVE); INFLUENZA B NAA NEGATIVE (NEGATIVE); RESPIRATORY SYNCYTIAL VIR NAA NEGATIVE (NEGATIVE)
[2023-10-24 06:30] VITALS: BP 148/72; PULSE 62
== END 2023-10-24 07:30 | disposition home or self-care (01) ==
LOC: JP.ED 22:50
DX: E11.65 Type 2 diabetes mellitus with hyperglycemia (principal); I12.9 Hypertensive chronic kidney disease with stage 1 through stage 4 chronic kidney disease, or unspecified chronic kidney disease; N18.9 Chronic kidney disease, unspecified; E78.00 Pure hypercholesterolemia, unspecified; I25.10 Atherosclerotic heart disease of native coronary artery without angina pectoris; Z88.8 Allergy status to other drugs, medicaments and biological substances; Z91.048 Other nonmedicinal substance allergy status; Z95.5 Presence of coronary angioplasty implant and graft; E20.9 Hypoparathyroidism, unspecified; Z79.899 Other long term (current) drug therapy; Z79.4 Long term (current) use of insulin
CPT/HCPCS: 0241U; 36415; 80053; 81001; 82150; 82947; 83605; 83690; 83735; 84484; 85025; 85610; 86140; 96360; 99285-25; J1815-GY; J7030

== ENCOUNTER 2024-07-03 16:13 | Emergency (ER) | payer MEDICARE, BC ==
[2024-07-03 16:34] LABS: BASOPHILS PERCENT AUTO 0.1 % (0.1-1.3); EOSINOPHILS ABSOLUTE AUTO 0.11 K/uL (0.00-0.40); EOSINOPHILS PERCENT AUTO 0.9 % (0.0-5.4); HEMATOCRIT 38.3 % (38.4-49.7); HEMOGLOBIN 12.9 g/dL (12.9-16.9); IMMATURE GRAN ABSOLUTE AUTO 0.05 K/uL (0.00-0.23); IMMATURE GRAN PERCENT AUTO 0.4 % (0.0-0.7); LYMPHOCYTES ABSOLUTE AUTO 2.28 K/uL (0.8-3.3); LYMPHOCYTES PERCENT AUTO 19.6 % (11.4-47.7); MEAN CORPUSCULAR HEMOGLOBIN 30.2 pg (31.6-35.5); MEAN CORPUSCULAR HGB CONC 33.7 g/dL (31.6-35.5); MEAN CORPUSCULAR VOLUME 89.7 fL (81.4-99.0); MONOCYTES ABSOLUTE AUTO 0.31 K/uL (0.20-0.90); MONOCYTES PERCENT AUTO 2.7 % (3.3-12.6); NEUTROPHILS PERCENT AUTO 76.3 % (40.0-78.1); PLATELET COUNT,PLT 87 K/uL (130-375); RED BLOOD CELL COUNT 4.27 M/uL (4.14-5.76); WHITE BLOOD CELL COUNT,WBC 11.7 K/uL (3.2-11.0)
[2024-07-03 16:36] LABS: BASOPHILS ABSOLUTE AUTO 0.01 K/uL (0.00-0.10)
[2024-07-03 16:56] LABS: ALANINE AMINOTRANSFERASE,ALT 20 U/L (12-78); ALBUMIN 3.2 g/dL (3.4-5.0); ALKALINE PHOSPHATASE 118 U/L (46-116); ASPARTATE AMNIOTRANSFERASE,AST 35 U/L (15-37); BILIRUBIN TOTAL 0.2 mg/dL (0.2-1.0); BLOOD UREA NITROGEN,BUN 61 mg/dL (7-18); CALCIUM 9.1 mg/dL (8.5-10.1); CHLORIDE,CL 113 mmol/L (100-108); CREATININE 1.9 mg/dL (0.8-1.3); ESTIMATED GFR 36 mL/min (>60); GLUCOSE RANDOM 216 mg/dL (74-106); POTASSIUM,K 4.7 mmol/L (3.6-5.2); PROTEIN TOTAL,TP 6.4 g/dL (6.4-8.2); SODIUM,NA 140 mmol/L (140-148)
[2024-07-03 16:57] LABS: ANION GAP 16.7 mmol/L (5.0-14.0); CARBON DIOXIDE,CO2 15 mmol/L (21-32)
[2024-07-03] MEDS: Sodium Chloride 0.9% 1,000 ML IV SCH (17:45)
[2024-07-03] MEDS: atorvaSTATin 20 MG Tab PO ONE (21:29)
[2024-07-03] MEDS: Pramipexole 0.5 MG Tab PO ONE (21:30)
[2024-07-03] MEDS: Oxybutynin 5 MG Tab PO ONE (21:30)
[2024-07-03] MEDS: Carbidopa/Levodopa 25-100 MG Tab PO ONE (21:30)
[2024-07-03] MEDS: Acetaminophen 325 MG Tab PO PRN (21:31)
[2024-07-03] MEDS: Tamsulosin 0.4 MG Cap.ER PO ONE (21:31)
[2024-07-04 08:11] VITALS: BP 106/42; PULSE 71
[2024-07-04] MEDS ORDERED: Pramipexole 0.5 MG Tab PO ONE (21:00)
== END 2024-07-04 08:15 ==
LOC: JP.ED 16:13 → EEVIPCON 16:13 → JP.ED 07-04 08:15
DX: G93.89 Other specified disorders of brain (principal); I12.9 Hypertensive chronic kidney disease with stage 1 through stage 4 chronic kidney disease, or unspecified chronic kidney disease; N18.9 Chronic kidney disease, unspecified; I25.10 Atherosclerotic heart disease of native coronary artery without angina pectoris; E78.00 Pure hypercholesterolemia, unspecified; E11.22 Type 2 diabetes mellitus with diabetic chronic kidney disease; Z79.899 Other long term (current) drug therapy; Z88.8 Allergy status to other drugs, medicaments and biological substances; Z79.82 Long term (current) use of aspirin; Z79.4 Long term (current) use of insulin
CPT/HCPCS: 36415; 70450; 70450-26; 72125; 72125-26; 73030-26-LT; 73030-LT; 76377; 76377-26; 80053; 82947; 83605; 84484; 85025; 99284; 99285; A9270-GY; J7030